=== PATIENT | female | born 1940 | race Caucasian/White ===

== ENCOUNTER → 2020-01-01 | Outpatient (CLI) | payer OTHER ==
[~2020-01-01] VITALS: Ht 154.9 cm; Wt 60.3 kg
[~2020-01-01] MED LIST: CELEXA 20 MG TA20 MG PO; ELIQUIS5 MG PO; LIPITOR20 MG PO; LOSARTAN POTASS50 MG PO; LUMIGAN2.5 M1 OPHTHALMIC; NORVASC5 M1 PO; PRESERVISION A1 EACH PO; TOPROL XL50 MG PO; VITAMIN D350 MCG PO
--- NOTE | 2020-01-04 11:17 | P ---
[facility] [place] [address] [place] [address] PROCEDURE REPORT Name: MARLENY WEBSTER Room #: [facility]#: [id number] Admission: 01/01/20 Attend Phys: Gustavo Monge MD Discharge: Date of : 36 Report #: [id number] THIS REPORT FOR: cc: Lane Rice Louis D. DO Thesing, John A. MD ~ CC: Gustavo Rice DO DATE OF SERVICE: 01/01/2020 BRIEF HISTORY: The patient is an 79-year-old woman with recent melanotic stools. She has also been on iron replacement recently, presumably for iron deficiency anemia. She is also on Xarelto. PREOPERATIVE DIAGNOSIS: Melanotic stools on anticoagulation. POSTOPERATIVE DIAGNOSIS: Moderately severe diffuse gastritis. MEDICATIONS: Deep sedation with propofol per anesthesia. SPECIMENS: 1. Small bowel biopsies to rule out celiac disease. 2. Biopsies of gastritis. ESTIMATED BLOOD LOSS: 3 mL. PROCEDURE: Esophagogastroduodenoscopy with biopsy. FINDINGS: Prior to propofol sedation, the procedure of upper endoscopy was discussed with the patient as well as potential risks and its complications. She indicates she understands and desires to proceed. DESCRIPTION OF PROCEDURE: With the patient in left lateral decubitus position, the Olympus video endoscope was inserted in the cervical esophagus under direct vision without difficulty. Examination of this organ through its entire length with normal esophageal mucosa down the squamocolumnar junction. Squamocolumnar junction was inspected and noted to be unremarkable. There was no evidence of ulcers, erosions or bleeding lesions. Varices were not seen. Hiatus hernia was not seen. The scope was advanced in the stomach, which was examined on end view as well as retroflexed views. There was a pattern of a diffuse gastritis. No ulcers or erosions were seen. Vascular ectasias were not seen. Bleeding lesions were not seen. Upon retroflexion, no mass lesions were seen. The pylorus, duodenal bulb and postbulbar duodenal sweep were all inspected and noted to be unremarkable. Due to her history of anemia, need for iron [facility] [address] [place] [address] PROCEDURE REPORT Name: SHANELLE WEBSTERJORIE Jazz Room #: REG [facility].#: [id number] Admission: 01/01/20 Attend Phys: Gustavo Monge MD Discharge: Date of : 36 Report #: [id number] supplementation, small bowel biopsies obtained to evaluate for celiac disease. At that point, the scope was slowly withdrawn and careful circumferential views confirmed the above findings. The patient tolerated the procedure well. We also obtained biopsies of gastritis. CONDITION OF THE PATIENT UPON DISCHARGE: Following procedure, the patient is drowsy, arousable and conversant. She will be discharged home when fully ambulatory. INSTRUCTIONS TO THE PATIENT AND FAMILY AT THE TIME OF DISCHARGE: No bleeding lesions or potential bleeding lesions seen on today's exam. Etiology of her black stool is not entirely clear. She reports at this time, the black stools had resolved. She has been on Xarelto. She may resume her Xarelto tomorrow. She will return to care of Dr. Lane Rice return to see me as needed. If she has further black stools, she should call for further evaluation. <ELECTRONICALLY SIGNED> By: Gustavo Monge MD 01/04/20 1117 1143 1703 Gustavo Monge MD /nt
--- NOTE | 2020-01-04 17:09 | PATH ---
[facility] [address] [place] [address] PATHOLOGY RPT PROCEDURE Name: SHANELLE WEBSTERJORIE Jazz Room #: [facility].#: [id number] Admission: 01/01/20 Date of : 36 Discharge: Report #: [id number] Path Case #: [id number] [facility] Accession Number: [id number] . 01 Material submitted: . PART A: small bowel - BX SMALL BOWEL PART B: stomach - BX GASTRITIS . 01 Clinical history: . Black stools, melena. . 02 Diagnosis: A. Small bowel mucosa, small bowel rule out celiac disease, endoscopic biopsy: - No diagnostic abnormalities present. - Negative for villous blunting or increase in intraepithelial lymphocytes. . B. Gastric mucosa, gastritis rule out H. pylori, endoscopic biopsy: - Mild chronic gastritis with features of reactive gastropathy along with focal intestinal metaplasia. - Negative for atrophy or dysplasia. - Negative for Helicobacter pylori (properly-controlled immunohistochemical stain performed). . (IUV:mml; 01/04/2020) QLM 01/04/2020 1238 Local . 02 Electronically signed: . Cat Hurst MD, Pathologist NPI- [id number] . 01 Gross description: . A. Received in formalin labeled "Ben, Marleny, BX small bowel rule out celiac" is a 1.8 x 0.4 x 0.1 cm aggregate of alexander-brown soft tissue fragments. The specimen is submitted entirely in A1. . B. Received in formalin labeled "Ben, Marleny, BX gastritis rule out H. pylori" is a 0.7 x 0.4 x 0.1 cm aggregate of alexander-brown soft tissue fragments. The specimen is submitted entirely in B1. ([facility] 01/03/2020) [facility] 01/03/2020 1048 Local . 02 Pathologist provided ICD-10: K29.50 . 02 CPT . 111884, [id number], [id number] [place] [address] PATHOLOGY RPT PROCEDURE Name: MARLENY WEBSTER A Room #: REG [facility] Adore#: [id number] Admission: 01/01/20 Date of : 36 Discharge: Report #: [id number] Path Case #: [id number] Specimen Comment: A courtesy copy of this report has been sent to [phone] Specimen Comment: [phone] Specimen Comment: Report sent to / DR DUMONT Performed at: [address], [place], [place] [id number] MD Aftab French MD Phone: [phone] Performed at: [address] [id number] MD Cat Hurst MD Phone: [phone]
== END | disposition home or self-care (01) ==
LOC: GI 08:38
DX: K92.1 Melena (principal); K29.50 Unspecified chronic gastritis without bleeding; K31.9 Disease of stomach and duodenum, unspecified; I10 Essential (primary) hypertension; E78.5 Hyperlipidemia, unspecified; F32.9 Major depressive disorder, single episode, unspecified; G47.30 Sleep apnea, unspecified; I73.9 Peripheral vascular disease, unspecified; Z98.890 Other specified postprocedural states; Z79.899 Other long term (current) drug therapy; Z87.891 Personal history of nicotine dependence; Z90.710 Acquired absence of both cervix and uterus; Z90.49 Acquired absence of other specified parts of digestive tract
CPT/HCPCS: 62110; 62900